=== PATIENT | male | born 2000 | race Hispanic/Latino ===

== ENCOUNTER 2022-11-20 16:07 | Emergency (ER) | payer OTHER ==
[2022-11-20] MEDS ORDERED: Ibuprofen 200 MG TAB ONE (17:35)
[2022-11-20] MEDS ORDERED: HYDROcodone/Acetaminophen 5/325 mg Tablet ONE (17:36)
== END 2022-11-20 17:50 | disposition home or self-care (01) ==
LOC: CSHERS 16:07
DX: S89.91XA Unspecified injury of right lower leg, initial encounter (principal); W50.2XXA Accidental twist by another person, initial encounter; Y93.67 Activity, basketball

== ENCOUNTER 2024-01-10 17:51 | Emergency (ER) | payer OTHER, SELFPAY ==
[2024-01-10] MEDS ORDERED: Dexamethasone 10 MG/ML VIAL ONE (19:25)
[2024-01-10] MEDS ORDERED: Ibuprofen 200 MG TAB ONE (19:26)
[2024-01-10] MEDS ORDERED: Ondansetron ODT 4 MG TAB ONE (19:26)
== END 2024-01-10 19:44 | disposition left against medical advice (07) ==
LOC: CSHERS 17:51
DX: B34.9 Viral infection, unspecified (principal); J02.9 Acute pharyngitis, unspecified
CPT/HCPCS: 87081; 87430; 99283; J1100; Q0162